=== PATIENT | female | born 1985 | race Caucasian/White ===

== ENCOUNTER 2017-08-10 13:21 | Inpatient (IN) | payer OTHER, BC ==
[~2017-08-10] VITALS: Ht 170.2 cm; Wt 106.0 kg
[2017-08-11] MEDS ORDERED: PRENATAL 19 CH1 EAC1 PO (00:54)
--- NOTE | 2017-08-11 09:26 | PR ---
[facility] [address] [facility] [place], [place] [address] Signed Progress Notes IP Datetime Report Generated by CPN: 08/11/2017 09:26 PROGRESS NOTES: [id number] Impression: Normal progression of labor Procedures: Artificial ROM Plan: Continue present management; Anticipate Vaginal Delivery VITAL SIGNS: [id number] Vital Signs: Reviewed; Within Normal Limits EXAM: [id number] Dilatation: 4.0 Effacement: 50 Station: -3 Uterine Contractions: rare MEMBRANES: [id number] Membrane Status: Intact ROM Note: AROM - clear fluid Comments: Contractions have spaced out. Will see if AROM brings back contractions. Fetus A: [id number] FHR Baseline: 135 Variability: Moderate 6-25bpm Accelerations: 15X15 Presentation: Vertex Fetus B: [id number] Signing Physician: Serge Marie MD CC: *Electronically Signed* 08/11/17925 SERGE MARIE MD PATIENT NAME: KAT HODGES PROGRESS NOTE DATE OF : 89 PHYSICIAN: SERGE MARIE MD RPT #: [id number] REPORT IS CONFIDENTIAL AND NOT TO BE RELEASED WITHOUT AUTHORIZATION
--- NOTE | 2017-08-11 13:03 | PR ---
[facility] [address] [facility] [place], [place] [address] Signed Progress Notes IP Datetime Report Generated by CPN: 08/11/2017 13:03 PROGRESS NOTES: [id number] Impression: Slow Progression of Labor Procedures: Intrauterine Pressure Catheter; Scalp Electrode Plan: Continue present management; Anticipate Vaginal Delivery VITAL SIGNS: [id number] Vital Signs: Reviewed; Within Normal Limits EXAM: [id number] Dilatation: 5.0 Effacement: 75 Station: -3 Uterine Contractions: every 3-5 minutes MEMBRANES: [id number] Membrane Status: Ruptured Amniotic Fluid Color: Clear ROM Note: AROM - clear fluid Comments: Slow progression with head still high. Internals applied, may need Pitocin Fetus A: [id number] FHR Baseline: 160 Variability: Moderate 6-25bpm Accelerations: 15X15 Presentation: Vertex Fetus B: [id number] Signing Physician: Serge Marie MD CC: *Electronically Signed* 08/11/17 1303 SERGE MARIE MD PATIENT NAME: KAT HODGES PROGRESS NOTE DATE OF : 89 PHYSICIAN: SERGE MARIE MD RPT #: [id number] REPORT IS CONFIDENTIAL AND NOT TO BE RELEASED WITHOUT AUTHORIZATION
--- NOTE | 2017-08-11 15:06 | PR ---
[facility] [address] [facility] [place], [place] [address] Signed Progress Notes IP Datetime Report Generated by CPN: 08/11/2017 15:05 PROGRESS NOTES: [id number] Impression: Slow Progression of Labor Procedures: Intrauterine Pressure Catheter; Scalp Electrode Plan: Augmentation VITAL SIGNS: [id number] Vital Signs: Reviewed; Within Normal Limits EXAM: [id number] Dilatation: 6.0 Effacement: 80 Station: -3 Uterine Contractions: every 3-5 minutes MEMBRANES: [id number] Membrane Status: Ruptured Amniotic Fluid Color: Clear ROM Note: AROM - clear fluid Comments: Comfortable with Epidural, on Pitocin. Fetus A: [id number] FHR Baseline: 150 Variability: Moderate 6-25bpm Accelerations: 15X15 Presentation: Vertex Fetus B: [id number] Signing Physician: Serge Marie MD CC: *Electronically Signed* 08/11/17 1505 SERGE MARIE MD PATIENT NAME: KAT HODGES PROGRESS NOTE DATE OF : 89 PHYSICIAN: SERGE MARIE MD RPT #: [id number] REPORT IS CONFIDENTIAL AND NOT TO BE RELEASED WITHOUT AUTHORIZATION
--- NOTE | 2017-08-11 17:55 | PR ---
[facility] [address] [facility] [place], [place] [address] Signed Progress Notes IP Datetime Report Generated by CPN: 08/11/2017 17:55 PROGRESS NOTES: [id number] Impression: Normal progression of labor Procedures: Intrauterine Pressure Catheter; Scalp Electrode Plan: Continue present management; Anticipate Vaginal Delivery VITAL SIGNS: [id number] Vital Signs: Reviewed; Within Normal Limits EXAM: [id number] Dilatation: 10.0 Effacement: 100 Station: 0 Uterine Contractions: every 2-3 minutes MEMBRANES: [id number] Membrane Status: Ruptured Amniotic Fluid Color: Clear ROM Note: AROM - clear fluid Comments: doing well, comfortable with Epidural. Will start pushing Fetus A: [id number] FHR Baseline: 150 Variability: Moderate 6-25bpm Accelerations: 15X15 Presentation: Vertex Fetus B: [id number] Signing Physician: Serge Marie MD CC: *Electronically Signed* 08/11/17 1755 SERGE MARIE MD PATIENT NAME: KAT HODGES PROGRESS NOTE DATE OF : 89 PHYSICIAN: SERGE AMRIE MD RPT #: [id number] REPORT IS CONFIDENTIAL AND NOT TO BE RELEASED WITHOUT AUTHORIZATION
--- NOTE | 2017-08-12 12:19 | PR ---
[facility] [address] [facility] [place], [place] [address] Signed PP Progress Notes Datetime Report Generated by CPN: 08/12/2017 12:19 SUBJECTIVE: [id number] Pain: Within normal limits Nausea/Vomiting: Denies Vital Signs: [id number] Vital Signs: Reviewed; Within Normal Limits Notable Details: PP Hgb/Hct = 10.6/30.0 EXAM: [id number] Abdomen/Uterus: Normal Lochia: Normal Extremities: Normal IMPRESSION/PLAN/PROCEDURES: [id number] Impression: Normal progression Plan: Discharge Procedures: None Progress Notes: Doing well, without complaint, wants to go home Signing Physician: Serge Marie MD CC: *Electronically Signed* 08/12/17 1219 SERGE MARIE MD PATIENT NAME: KAT HODGES PROGRESS NOTE DATE OF : 89 PHYSICIAN: SERGE MAREI MD RPT #: [id number] REPORT IS CONFIDENTIAL AND NOT TO BE RELEASED WITHOUT AUTHORIZATION
== END 2017-08-12 18:50 | disposition home or self-care (01) | DRG 775 ==
LOC: FBC 08-11 00:07
PROVIDERS: ADMIT General Practice
PROC: 00HU33Z Insertion of Infusion Device into Spinal Canal, Percutaneous Approach (ICD-10-PCS; principal; 2017-08-11)
PROC: 10E0XZZ Delivery of Products of Conception, External Approach (ICD-10-PCS; principal; 2017-08-11)
PROC: 3E0234Z Introduction of Serum, Toxoid and Vaccine into Muscle, Percutaneous Approach (ICD-10-PCS; principal; 2017-08-11)
PROC: 0KQM0ZZ Repair Perineum Muscle, Open Approach (ICD-10-PCS; principal; 2017-08-11)
PROC: 10907ZC Drainage of Amniotic Fluid, Therapeutic from Products of Conception, Via Natural or Artificial Opening (ICD-10-PCS; principal; 2017-08-11)
DX: O70.1 Second degree perineal laceration during delivery (principal); Z37.0 Single live birth; Z3A.40 40 weeks gestation of pregnancy
CPT/HCPCS: 01960; 36415; 83030; 85027; 86850; 86870; 86900; 86901; J2590; J2790; J2795; J7120